=== PATIENT | male | born 1935 | race Caucasian/White ===

== ENCOUNTER 2016-10-30 23:50 | Emergency (ER) | payer BC ==
[~2016-10-30 23:50] MED LIST: ACIPHEX PO; LEVOTHYROXIN50 MCG PO; [UNRECOGNIZED DRUG - REMARK]; [UNRECOGNIZED DRUG - REMARK]
== END 2016-10-31 01:17 | disposition home or self-care (01) ==
LOC: ER 23:50
DX: K41.90 Unilateral femoral hernia, without obstruction or gangrene, not specified as recurrent (principal); K21.9 Gastro-esophageal reflux disease without esophagitis; Z79.899 Other long term (current) drug therapy
CPT/HCPCS: 80053; 85025; 99283